=== PATIENT | female | born 1940 | race Caucasian/White ===

== ENCOUNTER 2016-03-09 19:08 | Inpatient (IN) | payer OTHER, MEDICARE ==
[~2016-03-09] VITALS: Ht 170.2 cm; Wt 72.0 kg
[~2016-03-09 19:08] MED LIST: CLINDAMYCIN HC300 MG PO; GABAPENTIN300 MG PO; HYDROCHLOROTHIA25 MG PO; HYDROCHLOROTHIAZIDE; LIPITOR10 MG PO; MEMANTINE HCL5 MG PO; METANX CAPSULE1 EACH PO; METFORMIN; METFORMIN HCL500 MG PO; METOPROLOL SUCC50 MG PO; METOPROLOL TART50 MG PO; NAMENDA XR28 MG PO; NORCO 5/3251 TABLET PO; TYLENOL WITH C1 EACH PO
[2016-03-09 20:06] LABS: HEMATOCRIT 30.2 % (36.0-46.0); MCH 29.9 PG (29.0-34.0); MCHC 34.1 G/DL (30.0-36.0); MCV 87.8 FL (83-99); MEAN PLAT.VOLUME 9.5 uM^3 (9.5-12.4); PLATELET COUNT 176 K/uL (156-360); RBC DIS.WIDTH-SD 40.2 % (39-53); RED BLOOD COUNT 3.44 M/uL (3.80-5.20); WHITE BLOOD COUNT 5.8 K/uL (4.1-10.2)
[2016-03-09 20:16] LABS: CHLORIDE 104 mEq/L (99-109); POTASSIUM 3.6 mEq/L (3.7-5.4); SODIUM 140 mEq/L (136-147)
[2016-03-09 20:18] LABS: GLUCOSE 131 mg/dL (70-99)
[2016-03-09 20:19] LABS: ANION GAP 8 MEQ/L (2-14)
[2016-03-09 20:22] LABS: GFR ESTIMATE (CALCULATED) 57 mL/min/
[2016-03-09 20:23] LABS: UREA NITROGEN (BUN) 14 mg/dL (9-23)
[2016-03-09 22:30] LABS: ADD MIUA? NO; BILIRUBIN NEGATIVE; BLOOD NEGATIVE; COLOR YELLOW ((YELLOW)); GLUCOSE (STRIP) NEGATIVE; KETONES NEGATIVE; LEUKOCYTES NEGATIVE; NITRITE NEGATIVE; PH, URINE 7.5 (5-8); PROTEIN (STRIP) NEGATIVE; SPECIFIC GRAVITY 1.012 (1.000-1.030); UCUL ADDED? NO; UROBILINOGEN 0.2 MG/DL (0.2-1.0)
[2016-03-10 01:19] LABS: POINT-OF-CARE METER ID UU14174216; POINT-OF-CARE USER ID 609231305
[2016-03-10 01:43] VITALS: BP 200/82
[2016-03-10 02:31] LABS: HDL CHOLESTEROL 43 MG/DL (Desirable>=50); LDL CHOLESTEROL 124 mg/dL (Desirable<100); NON-HDL CHOLESTEROL 172 mg/dL (Desirable<160); TOTAL CHOLESTEROL 215 mg/dL (Desirable<200); TRIGLYCERIDES 241 MG/DL (Normal: <150)
[2016-03-10 03:18] VITALS: BP 150/82
[2016-03-10 05:55] LABS: POINT-OF-CARE METER ID UU13113781; POINT-OF-CARE USER ID 609231305
[2016-03-10 06:53] LABS: HEMATOCRIT 29.1 % (36.0-46.0); MCH 29.4 PG (29.0-34.0); MCHC 33.3 G/DL (30.0-36.0); MCV 88.2 FL (83-99); MEAN PLAT.VOLUME 10.7 uM^3 (9.5-12.4); PLATELET COUNT 142 K/uL (156-360); RBC DIS.WIDTH-CV 13.3 % (11.8-14.6); RBC DIS.WIDTH-SD 43.1 % (39-53)
[2016-03-10 07:27] LABS: ALKALINE PHOSPHATASE 46 IU/L (3-129); ANION GAP 8 MEQ/L (2-14); CHLORIDE 108 MEQ/L (99-109); GFR ESTIMATE (CALCULATED) > 59 mL/min/; POTASSIUM 3.7 MEQ/L (3.7-5.4); SAMPLE HEMOLYSIS CHECK 0; SAMPLE ICTERIC CHECK 0; SAMPLE LIPEMIA CHECK 0; SODIUM 141 MEQ/L (136-147); TOTAL BILIRUBIN 0.7 MG/DL (0.0-1.0); UREA NITROGEN (BUN) 12 mg/dL (9-23)
[2016-03-10 07:29] LABS: GLUCOSE 95 mg/dL (70-99)
[2016-03-10 08:27] VITALS: BP 184/86
[2016-03-10 09:12] LABS: Estimated Average Glucose 100 mg/dL (70-123); HEMOGLOBIN A1c (GLYCOHEMOGLOB) 5.1 % HGB (Below 5.7)
[2016-03-10 12:47] VITALS: BP 154/107
[2016-03-10 13:38] LABS: POINT-OF-CARE METER ID UU13113781
[2016-03-10 16:27] LABS: POINT-OF-CARE METER ID UU13113781
[2016-03-10 16:29] VITALS: BP 206/113
[2016-03-10 19:30] VITALS: BP 195/93
[2016-03-10 20:58] LABS: ADD MIUA? NO; BILIRUBIN NEGATIVE; BLOOD NEGATIVE; COLOR YELLOW ((YELLOW)); GLUCOSE (STRIP) NEGATIVE; KETONES NEGATIVE; LEUKOCYTES NEGATIVE; NITRITE NEGATIVE; PH, URINE 7.5 (5-8); PROTEIN (STRIP) NEGATIVE; SPECIFIC GRAVITY 1.004 (1.000-1.030); UROBILINOGEN 0.2 MG/DL (0.2-1.0)
[2016-03-10 21:03] LABS: UCUL ADDED? NO
[2016-03-10 21:04] LABS: POINT-OF-CARE METER ID UU13113781
[2016-03-11] VITALS (8 sets, daily range): BP systolic 158–209; BP diastolic 70–100
[2016-03-11 12:05] LABS: POINT-OF-CARE METER ID UU13113698
[2016-03-11 15:45] LABS: POINT-OF-CARE METER ID UU13113698
[2016-03-11 16:47] LABS: BASE EXCESS 2.5 mEq/L (-3 to +3); BICARBONATE 26.3 mEq/L (22-26); METHEMOGLOBIN 1.6 % (0-1.5); PCO2 37 mm Hg (35-45); PO2 81 mm Hg (80-100); pH 7.46 (7.35-7.45)
[2016-03-11 16:48] LABS: COMMENTS - BLOOD GASES A+C+; DEVICE RA; SITE LR; TOTAL RESP RATE 20 resp/min
[2016-03-12] VITALS (7 sets, daily range): BP systolic 153–195; BP diastolic 72–100
[2016-03-12 08:13] LABS: POINT-OF-CARE METER ID UU13113698
[2016-03-12 11:42] LABS: POINT-OF-CARE METER ID UU13113781
[2016-03-12 16:14] LABS: POINT-OF-CARE METER ID UU13113781
[2016-03-12 16:52] LABS: APPEARANCE CLEAR/COLORLESS; RED CELL AREA COUNTED 18; RED CELL COUNT 2 /MM^3 (0-1); RED CELL DILUTION 1; WBC AREA COUNTED 18; WBC DILUTION 1; WHITE CELL COUNT 0 /MM^3 (0-5); WHITE CELL RAW COUNT 0
[2016-03-12 16:53] LABS: CSF EOSINOPHILS 0 % (0-25); MONO RAW COUNT 0; MONONUCLEAR WBC'S 0 % (50-90); POLY RAW COUNT 0; POLYNUCLEAR WBC'S 0 % (0-3)
[2016-03-12 21:18] LABS: POINT-OF-CARE METER ID UU14174216
[2016-03-13 04:00] VITALS: BP 146/60
[2016-03-13 08:07] VITALS: BP 186/98
[2016-03-13 11:45] VITALS: BP 186/82
[2016-03-13 16:30] VITALS: BP 186/92; BP 190/94
[2016-03-13 20:00] VITALS: BP 189/90
[2016-03-13 21:13] LABS: POINT-OF-CARE USER ID 612031313
[2016-03-13 23:31] VITALS: BP 172/88
[2016-03-14 04:00] VITALS: BP 185/80
[2016-03-14 04:52] VITALS: BP 160/82
[2016-03-14 07:13] LABS: HEMATOCRIT 31.1 % (36.0-46.0); MCH 29.7 PG (29.0-34.0); MCHC 33.8 G/DL (30.0-36.0); MCV 87.9 FL (83-99); MEAN PLAT.VOLUME 10.4 uM^3 (9.5-12.4); PLATELET COUNT 178 K/uL (156-360); RBC DIS.WIDTH-CV 13.6 % (11.8-14.6); RED BLOOD COUNT 3.54 M/uL (3.80-5.20); WHITE BLOOD COUNT 8.5 K/uL (4.1-10.2)
[2016-03-14 07:41] LABS: ANION GAP 11 MEQ/L (2-14); CHLORIDE 104 MEQ/L (99-109); GFR ESTIMATE (CALCULATED) > 59 mL/min/; GLUCOSE 124 mg/dL (70-99); POTASSIUM 3.1 MEQ/L (3.7-5.4); SAMPLE HEMOLYSIS CHECK 0; SAMPLE ICTERIC CHECK 0; SAMPLE LIPEMIA CHECK 0; SODIUM 140 MEQ/L (136-147); UREA NITROGEN (BUN) 18 mg/dL (9-23)
[2016-03-14 08:12] VITALS: BP 159/86
[2016-03-14 09:19] LABS: POINT-OF-CARE METER ID UU14174225
[2016-03-14 12:00] VITALS: BP 177/87
[2016-03-14 16:00] VITALS: BP 179/87
[2016-03-14 20:21] VITALS: BP 163/89
[2016-03-14 21:08] LABS: POINT-OF-CARE METER ID UU14174225
[2016-03-15] VITALS (8 sets, daily range): BP systolic 141–187; BP diastolic 72–98
[2016-03-15 06:14] LABS: ANION GAP 8 MEQ/L (2-14); CHLORIDE 103 MEQ/L (99-109); GFR ESTIMATE (CALCULATED) > 59 mL/min/; GLUCOSE 123 mg/dL (70-99); POTASSIUM 3.3 MEQ/L (3.7-5.4); SAMPLE HEMOLYSIS CHECK 0; SAMPLE ICTERIC CHECK 0; SAMPLE LIPEMIA CHECK 0; SODIUM 138 MEQ/L (136-147); UREA NITROGEN (BUN) 11 mg/dL (9-23)
[2016-03-15] MEDS ORDERED: ATORVASTATIN CA40 MG PO (09:55)
[2016-03-15] MEDS ORDERED: ASPIRIN EC325 MG PO (09:55)
[2016-03-15 21:07] LABS: POINT-OF-CARE METER ID UU14174225
[2016-03-16 04:08] VITALS: BP 180/88
[2016-03-16 06:58] LABS: HEMATOCRIT 33.8 % (36.0-46.0); MCH 29.6 PG (29.0-34.0); MCHC 33.7 G/DL (30.0-36.0); MCV 87.8 FL (83-99); MEAN PLAT.VOLUME 10.6 uM^3 (9.5-12.4); PLATELET COUNT 200 K/uL (156-360); RBC DIS.WIDTH-CV 13.6 % (11.8-14.6); RBC DIS.WIDTH-SD 43.5 % (39-53); RED BLOOD COUNT 3.85 M/uL (3.80-5.20); WHITE BLOOD COUNT 8.9 K/uL (4.1-10.2)
[2016-03-16 07:26] LABS: ANION GAP 9 MEQ/L (2-14); CHLORIDE 101 MEQ/L (99-109); GFR ESTIMATE (CALCULATED) > 59 mL/min/; GLUCOSE 123 mg/dL (70-99); POTASSIUM 3.3 MEQ/L (3.7-5.4); SAMPLE HEMOLYSIS CHECK 0; SAMPLE ICTERIC CHECK 0; SAMPLE LIPEMIA CHECK 0; SODIUM 137 MEQ/L (136-147); UREA NITROGEN (BUN) 13 mg/dL (9-23)
[2016-03-16 09:39] VITALS: BP 152/78
[2016-03-16 12:00] VITALS: BP 180/79
[2016-03-16 16:30] VITALS: BP 141/67
[2016-03-16 21:22] VITALS: BP 195/110
[2016-03-17] VITALS: BP 153/69
[2016-03-17 04:00] VITALS: BP 159/80
[2016-03-17 07:26] LABS: ANION GAP 8 MEQ/L (2-14); CHLORIDE 103 MEQ/L (99-109); GFR ESTIMATE (CALCULATED) > 59 mL/min/; GLUCOSE 105 mg/dL (70-99); POTASSIUM 3.8 MEQ/L (3.7-5.4); SAMPLE HEMOLYSIS CHECK 0; SAMPLE ICTERIC CHECK 0; SAMPLE LIPEMIA CHECK 0; SODIUM 138 MEQ/L (136-147); UREA NITROGEN (BUN) 16 mg/dL (9-23)
[2016-03-17 08:04] VITALS: BP 170/72
[2016-03-17] MEDS ORDERED: LISINOPRIL40 MG PO (09:37)
[2016-03-17] MEDS ORDERED: METOPROLOL TART75 MG PO (09:37)
[2016-03-17 11:33] VITALS: BP 164/70
== END 2016-03-17 15:09 | DRG 948 ==
LOC: EME 19:08 → 4EAST 23:14 → 5SOUTH 23:14 → EDOF 23:14 → 4EAST 03-10 00:14 → 5SOUTH 03-12 22:55
PROVIDERS: Emergency Medicine; Hospitalist; Internal Medicine; Physician Assistant; Physician Assistant Medical; Specialist
PROC: 009U3ZX Drainage of Spinal Canal, Percutaneous Approach, Diagnostic (ICD-10-PCS; principal; 2016-03-12)
DX: R41.0 Disorientation, unspecified (principal); G91.2 (Idiopathic) normal pressure hydrocephalus; I16.0 Hypertensive urgency; E11.9 Type 2 diabetes mellitus without complications; E87.6 Hypokalemia; G31.01 Pick's disease; F02.80 Dementia in other diseases classified elsewhere, unspecified severity, without behavioral disturbance, psychotic disturbance, mood disturbance, and anxiety; D64.9 Anemia, unspecified; Z86.73 Personal history of transient ischemic attack (TIA), and cerebral infarction without residual deficits
CPT/HCPCS: 36600; 62270; 70450; 70551; 71010; 80048; 80053; 80061; 81003; 82803; 82945; 82948; 83036; 84157; 85027; 87040; 87070; 87086; 87102; 87205; 87899; 89051; 92523 GN; 92526 GN; 93005; 93880; 95819; 97530 GO; 97530 GP; 99281; 99285; J0360; J0696; J1630; J1644; J1815; J2405; J3480; J7030; J7050; J7070; S0028

== ENCOUNTER 2017-04-04 11:44 | Inpatient (IN) | payer OTHER, MEDICARE ==
[~2017-04-04] VITALS: Ht 170.2 cm; Wt 81.7 kg
[~2017-04-04 11:44] MED LIST changes: +ASPIRIN EC325 MG PO; +ATORVASTATIN CA40 MG PO; +LISINOPRIL40 MG PO; +METOPROLOL TART75 MG PO
[2017-04-04] MEDS ORDERED: ZESTRIL40 MG PO (13:33)
[2017-04-04] MEDS ORDERED: TOPROL XL100 MG PO (13:34)
[2017-04-04] MEDS ORDERED: PROTONIX40 MG PO (13:35)
[2017-04-04] MEDS ORDERED: VITAMIN E200 UNI2 PO (13:36)
[2017-04-04 13:53] LABS: HEMATOCRIT 31.8 % (36.0-46.0); HEMOGLOBIN 11.2 G/DL (11.9-15.5); MCH 31.8 PG (29.0-34.0); MCHC 35.2 G/DL (30.0-36.0); MCV 90.3 FL (83-99); PLATELET COUNT 155 K/uL (156-360); RBC DIS.WIDTH-CV 12.3 % (11.8-14.6); RBC DIS.WIDTH-SD 39.9 % (39-53); RED BLOOD COUNT 3.52 M/uL (3.80-5.20); WHITE BLOOD COUNT 18.1 K/uL (4.1-10.2)
[2017-04-04 13:59] LABS: APPEARANCE CLEAR ((CLEAR)); BILIRUBIN NEGATIVE; BLOOD SMALL; COLOR YELLOW ((YELLOW)); GLUCOSE (STRIP) NEGATIVE; KETONES NEGATIVE; LEUKOCYTES NEGATIVE; NITRITE NEGATIVE; PROTEIN (STRIP) 30; SPECIFIC GRAVITY 1.026 (1.000-1.030); UROBILINOGEN 0.2 MG/DL (0.2-1.0)
[2017-04-04 14:04] LABS: BACTERIA RARE /HPF; EPITHELIAL CELLS NONE SEEN /HPF; HYALINE CASTS 0-5 /LPF; MUCUS 1+ /LPF; RED BLOOD CELLS 0-5 /HPF (0-5); WHITE BLOOD CELLS 0-5 /HPF (0-5)
[2017-04-04 14:06] LABS: ALBUMIN 3.8 g/dL (3.2-4.8); CHLORIDE 104 mEq/L (99-109); POTASSIUM 4.1 mEq/L (3.7-5.4); SODIUM 143 mEq/L (136-147)
[2017-04-04 14:09] LABS: GLUCOSE 117 mg/dL (70-99); TOTAL PROTEIN 7.1 g/dL (6.4-8.3)
[2017-04-04 14:11] LABS: TOTAL BILIRUBIN 1.2 mg/dL (0.0-1.0)
[2017-04-04 14:12] LABS: ALKALINE PHOSPHATASE 80 IU/L (3-129)
[2017-04-04 14:13] LABS: CREATININE 1.1 mg/dL (0.6-1.3); GFR ESTIMATE (CALCULATED) 51 mL/min/
[2017-04-04 14:14] LABS: AST (GOT) 21 IU/L (2-34); UREA NITROGEN (BUN) 23 mg/dL (9-23)
[2017-04-04 14:15] LABS: ALT (GPT) 16 IU/L (3-49)
[2017-04-04 17:20] VITALS: BP 178/79
[2017-04-04 18:06] LABS: HDL CHOLESTEROL 46 MG/DL (Desirable>=50); LDL CHOLESTEROL 131 mg/dL (Desirable<100); NON-HDL CHOLESTEROL 150 mg/dL (Desirable<160); TOTAL CHOLESTEROL 196 mg/dL (Desirable<200); TRIGLYCERIDES 95 MG/DL (Normal: <150)
[2017-04-04 20:00] VITALS: BP 180/88
[2017-04-04 22:03] LABS: CANDIDA DNA PROBE NEGATIVE; GARDNERELLA DNA PROBE NEGATIVE; TRICHOMONAS DNA PROBE NEGATIVE
[2017-04-05 00:36] VITALS: BP 148/78
== END 2017-04-05 00:42 | disposition short-term general hospital (02) | DRG 871 ==
LOC: EME 11:44 → EDOF 16:10 → ENRESERV 16:11 → 5SOUTH 17:56
PROVIDERS: Emergency Medicine; Hospitalist
DX: A41.9 Sepsis, unspecified organism (principal); N89.8 Other specified noninflammatory disorders of vagina; R53.1 Weakness; G93.41 Metabolic encephalopathy; I10 Essential (primary) hypertension; R47.01 Aphasia; R19.7 Diarrhea, unspecified; F02.80 Dementia in other diseases classified elsewhere, unspecified severity, without behavioral disturbance, psychotic disturbance, mood disturbance, and anxiety; G30.9 Alzheimer's disease, unspecified; N80.9 Endometriosis, unspecified; N71.9 Inflammatory disease of uterus, unspecified; E11.9 Type 2 diabetes mellitus without complications; G81.91 Hemiplegia, unspecified affecting right dominant side; Z96.652 Presence of left artificial knee joint; Z86.73 Personal history of transient ischemic attack (TIA), and cerebral infarction without residual deficits; Z80.41 Family history of malignant neoplasm of ovary; R00.0 Tachycardia, unspecified
CPT/HCPCS: 70450; 74177; 80053; 80061; 81003; 83036; 83605; 85027; 87040; 87070; 87081; 87086; 87110 90; 87480; 87510; 87660; 93005; 99281; 99285; J0360; J0696; J1644; J2270; J2543; J3370; J7030; J7040; J7050; S0028; S0030